=== PATIENT | male | born 1935 | race Caucasian/White ===

== ENCOUNTER 2017-04-29 03:57 | Inpatient (IN) | payer OTHER ==
[~2017-04-29] VITALS: Ht 172.7 cm; Wt 74.8 kg
--- NOTE | 2017-04-29 04:00 | NUR ---
BB RA FROM HOME, PER FAMILY OT IS "MORE ALTERED THAN NORMAL". PT'S FAMILY STATES PT "STARTED MAKING WEIRD NOISES, AND UPON ENTERING THE ROOM HE WAS NOT BREATHING WELL." PT IS AAOX1. RESP EVEN AND UNLABORED. NO S/S OF ACUTE DISTRESS NOTED. PT GOWNED AND PLACED ON MONITOR AND POX. PT SAFETY AND COMFORT MEASURES IN PLACE. AWAITING MD FOR EVAL. PT FAMILY BEDSIDE WITH PT.
[2017-04-29] MEDS ORDERED: IV NS 0.9% 1,000 ML BAG IV ONE (04:30)
[2017-04-29 04:38] LABS: BASOPHILS % (AUTO) 0.1 % (0.0-2.0); EOSINOPHILS # (AUTO) 0.2 /CMM (0.0-0.7); EOSINOPHILS % (AUTO) 2.9 % (0.0-6.0); HEMATOCRIT 38 % (39-51); HEMOGLOBIN 12.9 g/dL (13.5-17.5); LYMPHOCYTES % (AUTO) 40.7 % (20.0-44.0); MEAN CORPUSCULAR HEMOGLOBIN 32 PG (26.0-33.0); MEAN CORPUSCULAR HGB CONC 34 g/dl (31.0-36.0); MEAN CORPUSCULAR VOLUME 94 fL (80-96); MONOCYTES # (AUTO) 0.6 /CMM (0.1-1.30); MONOCYTES % (AUTO) 7.6 % (2.0-12.0); NEUTROPHILS # (AUTO) 3.6 /CMM (1.8-8.9); NEUTROPHILS % (AUTO) 48.7 % (43.0-81.0); PLATELET COUNT (AUTO) 175 /CMM (150-450); RED BLOOD CELL COUNT(AUTO) 4.02 MIL/uL (4.5-6.0); WHITE BLOOD COUNT (AUTO) 7.3 K/uL (4.3-11.0)
[2017-04-29 04:49] LABS: CALCIUM, SERUM 9.1 mg/dL (8.5-10.1); CARBON DIOXIDE 21 mmol/L (21-32); CHLORIDE 102 mmol/L (98-107); CREATININE 1.4 mg/dL (0.6-1.3); GLUCOSE 102 mg/dL (74-106); POTASSIUM 4.1 mmol/L (3.5-5.1); SODIUM SERUM 140 mmol/L (136-145); UREA NITROGEN, BLOOD 16 mg/dL (7-18)
[2017-04-29 04:50] LABS: SERUM AMMONIA 39 umol/L (11-32)
[2017-04-29 04:52] LABS: INR 1.02 (0.87-1.13)
[2017-04-29 04:54] LABS: ALANINE AMINOTRANSFERASE 16 U/L (12-78); ALBUMIN 3.9 g/dL (3.4-5.0); ALCOHOL, BLOOD < 3 mg/dL (0-0); ALKALINE PHOSPHATASE 97 U/L (46-116); ASPARTATE AMINOTRANSFERASE 16 U/L (15-37); BILIRUBIN,DIRECT 0.1 mg/dL (0.0-0.2); BILIRUBIN,TOTAL 0.5 mg/dL (0.2-1.0); TOTAL PROTEIN, SERUM 7.8 g/dL (6.4-8.2)
[2017-04-29 04:56] LABS: ACETAMINOPHEN 0 ug/ml (10-30); SALICYLATE 1.1 mg/dL (2.8-20.0)
[2017-04-29 04:57] LABS: TROPONIN I < 0.017 ng/mL (0.00-0.056)
[2017-04-29 04:57] LABS: APPEARANCE,URINE SL CLOUDY (CLEAR); BILIRUBIN,URINE NEGATIVE (NEGATIVE); BLOOD, URINE 1+ Ery/uL (NEGATIVE); KETONES,URINE NEGATIVE (NEGATIVE); LEUKOCYTE ESTERASE ,URINE NEGATIVE (NEGATIVE); NITRITE, URINE NEGATIVE (NEGATIVE); PH,URINE 5.5 (5.0-8.0); PROTEIN,URINE TRACE mg/dl (NEGATIVE); UGLUCOSE NEGATIVE (NEGATIVE); UROBILINOGEN,URINE 0.2 EU/dL (0.2)
[2017-04-29 05:00] LABS: COLOR,URINE Light yellow (YELLOW)
[2017-04-29 05:02] LABS: THYROID STIMULATING HORMONE 3.875 uIU/mL (0.358-3.74)
[2017-04-29 05:06] LABS: BACTERIA,URINE None seen /HPF (None Seen); SQUAMOUS EPITHELIAL CELL,UR Few /HPF (None Seen); URINE AMORPHOUS URATE Few /HPF (None Seen); WBC,URINE NONE SEEN /HPF (0-3)
--- NOTE | 2017-04-29 06:20 | NUR ---
CALLED FOR TELE BED
--- NOTE | 2017-04-29 06:40 | NUR ---
PANEL PAGED AGAIN
--- NOTE | 2017-04-29 07:04 | NUR ---
RACHELL CALLED BACK; CALL TRANSFERED TO DIDIER BOYCE
--- NOTE | 2017-04-29 07:07 | NUR ---
Patient is resting comfortably in bed with eyes closed. Easily aroused. VSS. No discomfort noted in pt.
[2017-04-29] MEDS ORDERED: ONDANSETRON HCL/PF 4 MG/2 ML VIAL IVP PRN (07:30)
[2017-04-29] MEDS ORDERED: ACETAMINOPHEN 325 MG TABLET PO PRN (07:30)
[2017-04-29] MEDS ORDERED: Z GUARD REMEDY 2 OZ OINT TP PRN (07:30)
[2017-04-29] MEDS ORDERED: LORAZEPAM INJ 2 MG/ML VIAL IV PRN (07:30)
[2017-04-29] MEDS ORDERED: HYDROCODONE/APAP 5/325MG 1 EACH TABLET PO PRN (07:30)
[2017-04-29] MEDS ORDERED: MAGNESIUM HYDROXIDE 30 ML UDC PO PRN (07:30)
[2017-04-29] MEDS ORDERED: MAG HYDROX/AL HYDROX/SIMETH 30 ML UDC PO PRN (07:30)
--- NOTE | 2017-04-29 08:44 | NUR ---
MS RN ADMITTING NOTES PT ADMITTED TO UNIT [facility]IA [facility] AT 0745 ACCOMPANIED BY E.R NURSE EBONIE AND PT'S . A/O X 3, SAME VERBALLY RESPONSIVE WITH NO C/O PAIN OR DISCOMFORTS VOICED. PT WITH DIAGNOSIS OF ALTERED MENTAL STATUS, PER PT IS MORE ALERT AND RESPONSIVE NOW BEFORE HE WAS BROUGHT TO HOSPITAL, HE ANSWERS QUESTIONS COHERENTLY IN FARSI. PT ON ROOM AIR, BREATHING EVEN AND UNLABORED. PT AND ORIENTED TO UNIT AND ROOM. V/S TAKEN AND RECORDED. BODY ASSESSMENT DONE FROM HEAD TO TOE, SKIN IS INTACT WITH NO BRUISES OR WOUNDS. PT HAS IV ACCESS ON LEFT AC G#18, INTACT AND PATENT, FLUSH EASILY. SAFETY MEASURES INITIATED. BED PLACED ON LOW/LOCK POSITION WITH SIDE-RAILS UP X2. BED ALARM ON AND CALL LIGHT PLACED WITHIN EASY REACH. WILL CONTINUE TO MONITOR AND ASSESS PT ACCORDINGLY.
[2017-04-29] MEDS: IV NS 0.9% 1,000 ML IV PRN ×2 (09:08→21:58)
[2017-04-29] MEDS: LEVETIRACETAM (250 MG) 250 MG TABLET PO SCH ×2 (11:31→21:59)
[2017-04-29] MEDS: ASPIRIN 81 MG TAB.CHEW PO SCH (11:31)
[2017-04-29 12:00] VITALS: BP 132/68
[2017-04-29 16:00] VITALS: BP 129/61
--- NOTE | 2017-04-29 18:25 | NUR ---
MS RN CLOSING NOTES PATIENT AWAKE AND RESTING IN BED WITH FAMILY AT BEDSIDE. A/O X4, VERBALLY RESPONSIVE IN FARSI. ON ROOM AIR, RESPIRATIONS EVEN WITH NO SOB NOTED. IV ACCESS ON LEFT AC PATENT AND INTACT, IVF OF NS @75ML/HR INFUSING WELL, NO SIGNS OF INFILTRATION NOTED. HOB ELEVATED. KEPT BED LOCKED AND AT LOWEST POSITION WITH SR UP X2. CALL LIGHT WITHIN REACH. ALL NEEDS AND CARE ATTENDED WELL. WILL ENDORSED TO PSYCHOLOGIST RESEARCH ASSISTANT NURSE FOR [facility]
--- NOTE | 2017-04-29 19:35 | NUR ---
MS RN INITIAL NOTES RECEIVED PT LAYING IN BED WITH HOB ELEVATED AND FAMILY AT BEDSIDE. AWAKE AND RESPONSIVE. RESPIRATIONS ARE EVEN AND UNLABORED, NOT IN ANY ACUTE DISTRESS NOTED. DENIES ANY PAIN AT THIS TIME. IV SITE INTACT, NO INFILTRATION NOTED. DRESSING KEPT CLEAN AND DRY. SAFETY MEASURES ARE IN PLACE. INSTRUCTED PT TO USE CALL LIGHT WHEN ASSISTANCE IS NEEDED, CALL LIGHT LEFT WITHIN REACH. WILL CONTINUE TO MONITOR THROUGHOUT SHIFT.
[2017-04-29 20:00] VITALS: BP 101/53
--- NOTE | 2017-04-30 06:05 | NUR ---
MS RN CLOSING NOTES ALL DUE MEDS GIVEN, NEEDS MET AND RENDERED. ALERT AND RESPONSIVE, REMAINS AFEBRILE. RESPIRATIONS ARE EVEN AND UNLABORED, NOT IN ANY ACUTE DISTRESS NOTED. NO FACIAL GRIMACING OR MOANING NOTED. IV TO LAC INTACT, NO INFILTRATION NOTED. DRESSING KEPT CLEAN AND DTY. IVF RUNNING AT 75ML/HR, TOLERATING WELL. PT ABLE TO AMBULATE TO BATHROOM WITH ASSISTANCE, NEEDS REINFORCEMENT TO USE CALL LIGHT WHEN ASSISTANCE IS NEEDED. SAFETY MEASURES ARE IN PLACE. CALL LIGHT IS LEFT WITHIN REACH. WILL ENDORSE TO NEXT SHIFT FOR CONTINUITY OF CARE.
[2017-04-30 06:48] LABS: BASOPHILS % (AUTO) 0.4 % (0.0-2.0); EOSINOPHILS # (AUTO) 0.1 /CMM (0.0-0.7); EOSINOPHILS % (AUTO) 2.3 % (0.0-6.0); HEMATOCRIT 32 % (39-51); HEMOGLOBIN 11.1 g/dL (13.5-17.5); LYMPHOCYTES # (AUTO) 1.5 /CMM (0.8-4.8); LYMPHOCYTES % (AUTO) 23.6 % (20.0-44.0); MEAN CORPUSCULAR HEMOGLOBIN 32 PG (26.0-33.0); MEAN CORPUSCULAR HGB CONC 35 g/dl (31.0-36.0); MEAN CORPUSCULAR VOLUME 93 fL (80-96); MONOCYTES # (AUTO) 0.6 /CMM (0.1-1.30); MONOCYTES % (AUTO) 8.7 % (2.0-12.0); NEUTROPHILS # (AUTO) 4.1 /CMM (1.8-8.9); PLATELET COUNT (AUTO) 143 /CMM (150-450); RDW COEFFICIENT OF VARIATION 13.2 (11.5-15.0); RED BLOOD CELL COUNT(AUTO) 3.43 MIL/uL (4.5-6.0); WHITE BLOOD COUNT (AUTO) 6.4 K/uL (4.3-11.0)
[2017-04-30 07:25] LABS: CALCIUM, SERUM 8.1 mg/dL (8.5-10.1); CARBON DIOXIDE 26 mmol/L (21-32); CHLORIDE 106 mmol/L (98-107); CREATININE 1.1 mg/dL (0.6-1.3); GLUCOSE 80 mg/dL (74-106); MAGNESIUM 1.8 mg/dL (1.8-2.4); PHOSPHORUS 3.2 mg/dL (2.5-4.9); POTASSIUM 3.9 mmol/L (3.5-5.1); SODIUM SERUM 140 mmol/L (136-145); UREA NITROGEN, BLOOD 20 mg/dL (7-18)
--- NOTE | 2017-04-30 07:31 | NUR ---
MS RN OPENING NOTES RECEIVED PATIENT IN STABLE CONDITION. IN NO APPARENT DISTRESS. BEDSIDE RAILS ARE UPX2. BED IS LOCKED AND LOWERED. CALL LIGHT IS WITHIN REACH. IV LINE IS INTACT AND PATENT. WILL CONTINUE TO MONITOR.
[2017-04-30 08:00] VITALS: BP 137/67
[2017-04-30] MEDS: ASPIRIN 81 MG TAB.CHEW PO SCH (08:41)
[2017-04-30] MEDS: LEVETIRACETAM (250 MG) 250 MG TABLET PO SCH (10:28)
[2017-04-30] MEDS ORDERED: ASPI-1169 PO (10:42)
[2017-04-30] MEDS ORDERED: DONE5TAB34 PO (10:42)
[2017-04-30] MEDS ORDERED: LOSA25TA13 PO (10:42)
[2017-04-30] MEDS ORDERED: GALA8TAB PO (10:42)
[2017-04-30] MEDS ORDERED: LEVE250T2 PO (13:16)
--- NOTE | 2017-04-30 15:55 | NUR ---
PATIENT DISCHARGED IN STABLE CONDITION. IN NO APPARENT DISTRESS. ALL NEEDS WERE MET. ID BAND WAS REMOVED. IV WAS REMOVED. VITAL SIGNS ARE WNL. PATIENT WAS ESCORTED OUT OF THE FACILITY BY JOSHUA PACHECO.
[2017-04-30] MEDS ORDERED: LEVETIRACETAM SOL (5 ML) 100 MG/ML UDC PO SCH (21:00)
== END 2017-04-30 16:05 | disposition home or self-care (01) | DRG 53 ==
LOC: ER 03:58 → TELE 07:29 → MED 10:43
PROVIDERS: ADMIT Internal Medicine; ATTEND Internal Medicine
DX: G40.909 Epilepsy, unspecified, not intractable, without status epilepticus (principal); F03.90 Unspecified dementia, unspecified severity, without behavioral disturbance, psychotic disturbance, mood disturbance, and anxiety; R13.10 Dysphagia, unspecified; I12.9 Hypertensive chronic kidney disease with stage 1 through stage 4 chronic kidney disease, or unspecified chronic kidney disease; N18.9 Chronic kidney disease, unspecified; Z90.5 Acquired absence of kidney; Z86.73 Personal history of transient ischemic attack (TIA), and cerebral infarction without residual deficits; Z85.528 Personal history of other malignant neoplasm of kidney; N40.0 Benign prostatic hyperplasia without lower urinary tract symptoms
CPT/HCPCS: 36415; 70450-TC; 71046; 80048-TC; 80076-TC; 80305; 81000-TC; 82140-TC; 83735-TC; 84100-TC; 84443-TC; 84484-TC; 85025-TC; 85730-TC; 87081-TC; 95819-TC; G0480; J7030

== ENCOUNTER 2017-06-23 18:08 | Inpatient (IN) | payer OTHER ==
[~2017-06-23] VITALS: Ht 167.6 cm; Wt 58.1 kg
[~2017-06-23 18:08] MED LIST: ASPI-1169 PO; DONE5TAB34 PO; LEVE250T2 PO; LOSA25TA13 PO
[2017-06-23] MEDS ORDERED: IV NS 0.9% 500 ML BAG IV ONE (18:30)
[2017-06-23] MEDS ORDERED: IOHEXOL-350 100 ML VIAL IV ONE (18:32)
[2017-06-23 18:41] LABS: BASOPHILS % (AUTO) 0.6 % (0.0-2.0); EOSINOPHILS % (AUTO) 4.2 % (0.0-6.0); HEMATOCRIT 36 % (39-51); HEMOGLOBIN 12.7 g/dL (13.5-17.5); LYMPHOCYTES # (AUTO) 1.5 /CMM (0.8-4.8); LYMPHOCYTES % (AUTO) 24.3 % (20.0-44.0); MEAN CORPUSCULAR HGB CONC 35 g/dl (31.0-36.0); MEAN CORPUSCULAR VOLUME 91 fL (80-96); MONOCYTES # (AUTO) 0.5 /CMM (0.1-1.30); MONOCYTES % (AUTO) 7.4 % (2.0-12.0); NEUTROPHILS # (AUTO) 3.9 /CMM (1.8-8.9); NEUTROPHILS % (AUTO) 63.5 % (43.0-81.0); PLATELET COUNT (AUTO) 160 /CMM (150-450); RDW COEFFICIENT OF VARIATION 12.8 (11.5-15.0); RED BLOOD CELL COUNT(AUTO) 3.97 MIL/uL (4.5-6.0); WHITE BLOOD COUNT (AUTO) 6.2 K/uL (4.3-11.0)
[2017-06-23 18:47] LABS: CALCIUM, SERUM 8.8 mg/dL (8.5-10.1); CARBON DIOXIDE 28 mmol/L (21-32); CHLORIDE 104 mmol/L (98-107); CREATININE 1.6 mg/dL (0.6-1.3); GLUCOSE 95 mg/dL (74-106); POTASSIUM 4.8 mmol/L (3.5-5.1); SODIUM SERUM 139 mmol/L (136-145); UREA NITROGEN, BLOOD 25 mg/dL (7-18)
[2017-06-23] MEDS ORDERED: IV NS 0.9% 500 ML IV ONE (18:49)
[2017-06-23] MEDS ORDERED: CT SWABBABLE VALVE TRANS SET 1 EA INFUS.SET MC ONE (18:50)
[2017-06-23 18:55] LABS: TROPONIN I < 0.017 ng/mL (0.00-0.056)
[2017-06-23 18:59] LABS: ALANINE AMINOTRANSFERASE 16 U/L (12-78); ALBUMIN 3.6 g/dL (3.4-5.0); ALKALINE PHOSPHATASE 86 U/L (46-116); ASPARTATE AMINOTRANSFERASE 14 U/L (15-37); BILIRUBIN,DIRECT 0.1 mg/dL (0.0-0.2); BILIRUBIN,TOTAL 0.4 mg/dL (0.2-1.0); TOTAL PROTEIN, SERUM 7.4 g/dL (6.4-8.2)
[2017-06-23 19:04] LABS: CHOLESTEROL 131 mg/dL (<200); HDL CHOLESTEROL 68 mg/dL (40-60); LDL 63 mg/dL (0-99); TRIGLYCERIDES 80 mg/dL (30-150)
[2017-06-23] MEDS ORDERED: GALA8TAB PO (20:23)
[2017-06-23] MEDS ORDERED: IV NS 0.9% 1,000 ML IV PRN (22:00)
[2017-06-23] MEDS: BLOOD SUGAR DIAGNOSTIC 1 EACH STRIP IN SCH (23:07)
[2017-06-23] MEDS: DONEPEZIL 5 MG TABLET PO SCH (23:11)
[2017-06-24] VITALS: BP 132/78
[2017-06-24] MEDS ORDERED: BLOOD SUGAR DIAGNOSTIC 1 EACH STRIP IN SCH
[2017-06-24 04:00] VITALS: BP 137/75
[2017-06-24 07:03] LABS: BASOPHILS % (AUTO) 0.6 % (0.0-2.0); EOSINOPHILS % (AUTO) 4.6 % (0.0-6.0); HEMATOCRIT 35 % (39-51); HEMOGLOBIN 11.9 g/dL (13.5-17.5); LYMPHOCYTES # (AUTO) 1.4 /CMM (0.8-4.8); LYMPHOCYTES % (AUTO) 24.7 % (20.0-44.0); MEAN CORPUSCULAR HGB CONC 34 g/dl (31.0-36.0); MEAN CORPUSCULAR VOLUME 92 fL (80-96); MONOCYTES # (AUTO) 0.5 /CMM (0.1-1.30); MONOCYTES % (AUTO) 8.9 % (2.0-12.0); NEUTROPHILS # (AUTO) 3.5 /CMM (1.8-8.9); NEUTROPHILS % (AUTO) 61.2 % (43.0-81.0); PLATELET COUNT (AUTO) 149 /CMM (150-450); RDW COEFFICIENT OF VARIATION 13.4 (11.5-15.0); RED BLOOD CELL COUNT(AUTO) 3.77 MIL/uL (4.5-6.0); WHITE BLOOD COUNT (AUTO) 5.7 K/uL (4.3-11.0)
[2017-06-24 07:19] LABS: CALCIUM, SERUM 8.3 mg/dL (8.5-10.1); CARBON DIOXIDE 28 mmol/L (21-32); CHLORIDE 105 mmol/L (98-107); CREATININE 1.3 mg/dL (0.6-1.3); GLUCOSE 71 mg/dL (74-106); POTASSIUM 4.3 mmol/L (3.5-5.1); SODIUM SERUM 140 mmol/L (136-145); UREA NITROGEN, BLOOD 21 mg/dL (7-18)
[2017-06-24 07:20] LABS: CHOLESTEROL 118 mg/dL (<200); HDL CHOLESTEROL 54 mg/dL (40-60); LDL 59 mg/dL (0-99); TRIGLYCERIDES 89 mg/dL (30-150)
[2017-06-24] MEDS: BLOOD SUGAR DIAGNOSTIC 1 EACH STRIP IN SCH ×4 (08:28→22:24)
[2017-06-24] MEDS: ASPIRIN EC 325 MG TABLET.DR PO SCH (08:39)
[2017-06-24] MEDS: LEVETIRACETAM (250 MG) 250 MG TABLET PO SCH ×2 (08:39→22:26)
[2017-06-24] MEDS ORDERED: GALANTAMINE HYDROBROMIDE 8 MG TABLET PO SCH (09:00)
[2017-06-24] MEDS: GALANTAMINE HYDROBROMIDE 4 MG TABLET PO SCH ×3 (11:32→18:05)
[2017-06-24 12:37] VITALS: BP 144/89
[2017-06-24] MEDS ORDERED: ATOR40TA PO (13:34)
[2017-06-24 15:17] LABS: APPEARANCE,URINE CLEAR (CLEAR); BILIRUBIN,URINE NEGATIVE (NEGATIVE); BLOOD, URINE 1+ Ery/uL (NEGATIVE); COLOR,URINE YELLOW (YELLOW); KETONES,URINE NEGATIVE (NEGATIVE); LEUKOCYTE ESTERASE ,URINE NEGATIVE (NEGATIVE); NITRITE, URINE NEGATIVE (NEGATIVE); PH,URINE 5.5 (5.0-8.0); PROTEIN,URINE NEGATIVE (NEGATIVE); UGLUCOSE NEGATIVE (NEGATIVE); UROBILINOGEN,URINE 0.2 EU/dL (0.2)
[2017-06-24 15:19] LABS: BACTERIA,URINE None seen /HPF (None Seen); SQUAMOUS EPITHELIAL CELL,UR 0-2 /HPF (None Seen); WBC,URINE 0-2 /HPF (0-3)
[2017-06-24 16:00] VITALS: BP 112/50
[2017-06-24 20:00] VITALS: BP 133/66
[2017-06-24] MEDS: ATORVASTATIN 40 MG TABLET PO SCH (22:25)
[2017-06-24] MEDS: DONEPEZIL 5 MG TABLET PO SCH (22:25)
[2017-06-25] VITALS (7 sets, daily range): BP systolic 122–157; BP diastolic 70–93
[2017-06-25] MEDS: BLOOD SUGAR DIAGNOSTIC 1 EACH STRIP IN SCH ×4 (07:32→21:45)
[2017-06-25] MEDS: GALANTAMINE HYDROBROMIDE 4 MG TABLET PO SCH ×3 (08:30→17:45)
[2017-06-25] MEDS: LEVETIRACETAM (250 MG) 250 MG TABLET PO SCH ×2 (08:30→21:45)
[2017-06-25] MEDS: ASPIRIN EC 325 MG TABLET.DR PO SCH (08:30)
[2017-06-25] MEDS: CYANOCOBALAMIN 1,000 MCG/ML VIAL IM SCH (10:18)
[2017-06-25] MEDS: DONEPEZIL 5 MG TABLET PO SCH (21:45)
[2017-06-25] MEDS: ATORVASTATIN 40 MG TABLET PO SCH (21:45)
[2017-06-26 06:17] LABS: BASOPHILS % (AUTO) 0.4 % (0.0-2.0); EOSINOPHILS % (AUTO) 5.2 % (0.0-6.0); HEMATOCRIT 39 % (39-51); HEMOGLOBIN 13.4 g/dL (13.5-17.5); LYMPHOCYTES # (AUTO) 1.3 /CMM (0.8-4.8); LYMPHOCYTES % (AUTO) 20.7 % (20.0-44.0); MEAN CORPUSCULAR HGB CONC 34 g/dl (31.0-36.0); MEAN CORPUSCULAR VOLUME 92 fL (80-96); MONOCYTES # (AUTO) 0.5 /CMM (0.1-1.30); MONOCYTES % (AUTO) 8.2 % (2.0-12.0); NEUTROPHILS # (AUTO) 4.2 /CMM (1.8-8.9); NEUTROPHILS % (AUTO) 65.5 % (43.0-81.0); PLATELET COUNT (AUTO) 148 /CMM (150-450); RED BLOOD CELL COUNT(AUTO) 4.24 MIL/uL (4.5-6.0); WHITE BLOOD COUNT (AUTO) 6.5 K/uL (4.3-11.0)
[2017-06-26 06:34] LABS: CARBON DIOXIDE 28 mmol/L (21-32); CHLORIDE 104 mmol/L (98-107); CREATININE 1.2 mg/dL (0.6-1.3); GLUCOSE 86 mg/dL (74-106); POTASSIUM 4.2 mmol/L (3.5-5.1); SODIUM SERUM 139 mmol/L (136-145); UREA NITROGEN, BLOOD 20 mg/dL (7-18)
[2017-06-26] MEDS: BLOOD SUGAR DIAGNOSTIC 1 EACH STRIP IN SCH ×4 (07:40→22:00)
[2017-06-26 08:00] VITALS: BP 121/75
[2017-06-26] MEDS: ASPIRIN EC 325 MG TABLET.DR PO SCH (08:27)
[2017-06-26] MEDS: LEVETIRACETAM (250 MG) 250 MG TABLET PO SCH ×2 (08:27→21:05)
[2017-06-26] MEDS: GALANTAMINE HYDROBROMIDE 4 MG TABLET PO SCH ×3 (08:27→16:53)
[2017-06-26] MEDS: CYANOCOBALAMIN 1,000 MCG/ML VIAL IM SCH (08:27)
[2017-06-26 16:00] VITALS: BP 127/72
[2017-06-26 20:00] VITALS: BP 135/69
[2017-06-26] MEDS: DONEPEZIL 5 MG TABLET PO SCH (21:05)
[2017-06-26] MEDS: ATORVASTATIN 40 MG TABLET PO SCH (21:05)
[2017-06-27 04:00] VITALS: BP 140/86
[2017-06-27] MEDS: BLOOD SUGAR DIAGNOSTIC 1 EACH STRIP IN SCH ×3 (08:06→17:06)
[2017-06-27] MEDS: LEVETIRACETAM (250 MG) 250 MG TABLET PO SCH (09:20)
[2017-06-27] MEDS: ASPIRIN EC 325 MG TABLET.DR PO SCH (09:20)
[2017-06-27] MEDS: GALANTAMINE HYDROBROMIDE 4 MG TABLET PO SCH ×3 (09:20→17:06)
[2017-06-27] MEDS: CYANOCOBALAMIN 1,000 MCG/ML VIAL IM SCH (09:20)
[2017-06-27 16:00] VITALS: BP 115/68
[2017-06-27 20:00] VITALS: BP 112/60
[2017-10-10] MEDS ORDERED: ATOR40TA PO (09:33)
[2017-10-13] MEDS ORDERED: LEVO500T75 PO (17:00)
== END 2017-06-27 20:50 | DRG 45 ==
LOC: ER 18:13 → TELE1 20:34 → MEDSG1 06-25 11:40
PROVIDERS: ADMIT Nurse Practitioner Acute Care; ATTEND Nurse Practitioner Acute Care
DX: I63.9 Cerebral infarction, unspecified (principal); N17.0 Acute kidney failure with tubular necrosis; I12.9 Hypertensive chronic kidney disease with stage 1 through stage 4 chronic kidney disease, or unspecified chronic kidney disease; N18.9 Chronic kidney disease, unspecified; F03.90 Unspecified dementia, unspecified severity, without behavioral disturbance, psychotic disturbance, mood disturbance, and anxiety; Z79.899 Other long term (current) drug therapy; Z79.82 Long term (current) use of aspirin; D64.9 Anemia, unspecified
CPT/HCPCS: 36415; 70450-TC; 70551-TC; 71045-TC; 80048-TC; 80061-TC; 80076-TC; 80305; 81000-TC; 82962-TC; 84484-TC; 85025-TC; 85730-TC; 86850-TC; 87081-TC; 92611-TC; 93307-TC; 93880-TC; 97110-TC; 97112-TC; 97116-TC; 97530-TC; A4606; J3420; J7030; J7040; Q9967; Z7610

== ENCOUNTER 2018-03-19 16:22 | Emergency (ER) | payer OTHER ==
[~2018-03-19] VITALS: Ht 165.1 cm; Wt 65.8 kg
[~2018-03-19 16:22] MED LIST changes: +ATOR40TA PO; +GALA8TAB PO; -LEVE250T2 PO; +LEVO500T75 PO; -LOSA25TA13 PO; +LOSA25TA27 PO
[2018-03-19 17:08] VITALS: BP 124/76
--- NOTE | 2018-03-19 17:26 | NUR ---
PT BBS, C/O CONSTPATION, SEEN BY , T&R
--- NOTE | 2018-03-19 17:27 | NUR ---
Patient discharged to home in stable condition. Written and verbal after care instructions given. Patient verbalizes understanding of instruction.
== END 2018-03-19 17:28 | disposition home or self-care (01) ==
LOC: ER 16:24
DX: K59.00 Constipation, unspecified (principal); F03.90 Unspecified dementia, unspecified severity, without behavioral disturbance, psychotic disturbance, mood disturbance, and anxiety; I10 Essential (primary) hypertension; F32.9 Major depressive disorder, single episode, unspecified; Z90.5 Acquired absence of kidney; Z86.73 Personal history of transient ischemic attack (TIA), and cerebral infarction without residual deficits; Z79.82 Long term (current) use of aspirin; Z79.899 Other long term (current) drug therapy
CPT/HCPCS: 99282; A4606; Z7610; Z7502

== ENCOUNTER 2018-05-18 09:48 | Emergency (ER) | payer OTHER ==
[~2018-05-18] VITALS: Ht 170.2 cm; Wt 56.7 kg
[2018-05-18 09:48] VITALS: BP 132/78
--- NOTE | 2018-05-18 12:47 | NUR ---
Patient discharged to home in stable condition. Written and verbal after care instructions given. Patient verbalizes understanding of instruction.
== END 2018-05-18 12:49 | disposition home or self-care (01) ==
LOC: ER 09:52
DX: S70.01XA Contusion of right hip, initial encounter (principal); M54.5 Low back pain; I10 Essential (primary) hypertension; F32.9 Major depressive disorder, single episode, unspecified; F03.90 Unspecified dementia, unspecified severity, without behavioral disturbance, psychotic disturbance, mood disturbance, and anxiety; Z86.73 Personal history of transient ischemic attack (TIA), and cerebral infarction without residual deficits; Z98.890 Other specified postprocedural states; Z79.82 Long term (current) use of aspirin; Z79.899 Other long term (current) drug therapy; W18.39XA Other fall on same level, initial encounter; Y93.01 Activity, walking, marching and hiking; Y92.89 Other specified places as the place of occurrence of the external cause; Y99.8 Other external cause status
CPT/HCPCS: 72170-TC; 73552

== ENCOUNTER 2018-07-05 04:01 | Emergency (ER) | payer OTHER ==
[~2018-07-05] VITALS: Ht 170.2 cm; Wt 56.7 kg
--- NOTE | 2018-07-05 04:15 | NUR ---
BIB AMBULANCE W/ REPORT OF SEIZURE EPISODE AT HOME . BASE LINE DEMENTIA PER . PLACED ON A MONITOR AND SEIZURE PRECUTION. WILL CONT TO MONITOR ,
[2018-07-05 04:54] LABS: BASOPHILS % (AUTO) 0.7 % (0.0-2.0); EOSINOPHILS % (AUTO) 3.9 % (0.0-6.0); HEMATOCRIT 35 % (39-51); HEMOGLOBIN 11.9 g/dL (13.5-17.5); LYMPHOCYTES # (AUTO) 1.4 /CMM (0.8-4.8); LYMPHOCYTES % (AUTO) 27.2 % (20.0-44.0); MEAN CORPUSCULAR HGB CONC 34 g/dl (31.0-36.0); MEAN CORPUSCULAR VOLUME 95 fL (80-96); MONOCYTES # (AUTO) 0.3 /CMM (0.1-1.30); MONOCYTES % (AUTO) 5.9 % (2.0-12.0); NEUTROPHILS # (AUTO) 3.3 /CMM (1.8-8.9); NEUTROPHILS % (AUTO) 62.3 % (43.0-81.0); PLATELET COUNT (AUTO) 133 /CMM (150-450); RED BLOOD CELL COUNT(AUTO) 3.71 MIL/uL (4.5-6.0); WHITE BLOOD COUNT (AUTO) 5.2 K/uL (4.3-11.0)
[2018-07-05 05:07] LABS: CALCIUM, SERUM 8.3 mg/dL (8.5-10.1); CARBON DIOXIDE 23 mmol/L (21-32); CHLORIDE 108 mmol/L (98-107); CREATININE 1.5 mg/dL (0.6-1.3); GLUCOSE 93 mg/dL (74-106); POTASSIUM 4.3 mmol/L (3.5-5.1); SODIUM SERUM 143 mmol/L (136-145); UREA NITROGEN, BLOOD 16 mg/dL (7-18)
[2018-07-05] MEDS ORDERED: LEVETIRACETAM (500MG) 500 MG in IV NS 0.9% 100 ML IV SCH (05:30)
[2018-07-05] MEDS ORDERED: LEVETIRACETAM (500MG) 500 MG/5 ML VIAL IV ONE (05:30)
--- NOTE | 2018-07-05 05:30 | NUR ---
ADDENDUM: Intravenous End Time Documentation: Keppra 500 MG IVPB: start time: 0530 am ; end time:0600 am : IV site: LAC # 20 Port # 1
--- NOTE | 2018-07-05 05:39 | NUR ---
Patient is resting comfortably in bed with eyes closed. Easily aroused. VSS. no seizure activity noted. medicated as ordered . at the bed side, will cont to monitor
--- NOTE | 2018-07-05 06:16 | NUR ---
Patient discharged to home in stable condition. Written and verbal after care instructions given. verbalizes understanding of instruction.
[2018-07-05 06:43] VITALS: BP 138/84
== END 2018-07-05 06:43 | disposition home or self-care (01) ==
LOC: ER 04:03
DX: G40.909 Epilepsy, unspecified, not intractable, without status epilepticus (principal); D64.9 Anemia, unspecified; F03.90 Unspecified dementia, unspecified severity, without behavioral disturbance, psychotic disturbance, mood disturbance, and anxiety; I10 Essential (primary) hypertension; R53.1 Weakness; F32.9 Major depressive disorder, single episode, unspecified; R94.31 Abnormal electrocardiogram [ECG] [EKG]; Z90.5 Acquired absence of kidney; Z79.82 Long term (current) use of aspirin; Z86.73 Personal history of transient ischemic attack (TIA), and cerebral infarction without residual deficits
CPT/HCPCS: 36415; 80048; 85025; 93005; 96365; 99284; J1953; J7030 ×2

== ENCOUNTER 2018-12-02 10:04 | Emergency (ER) | payer OTHER ==
[~2018-12-02] VITALS: Ht 167.6 cm; Wt 59.0 kg
[2018-12-02 10:40] VITALS: BP 134/76
[2018-12-02 11:47] LABS: BASOPHILS % (AUTO) 0.4 % (0.0-2.0); EOSINOPHILS % (AUTO) 3.2 % (0.0-6.0); HEMATOCRIT 36 % (39-51); HEMOGLOBIN 12.1 g/dL (13.5-17.5); LYMPHOCYTES # (AUTO) 1.4 /CMM (0.8-4.8); LYMPHOCYTES % (AUTO) 23.3 % (20.0-44.0); MEAN CORPUSCULAR HGB CONC 34 g/dl (31.0-36.0); MEAN CORPUSCULAR VOLUME 95 fL (80-96); MONOCYTES # (AUTO) 0.5 /CMM (0.1-1.30); MONOCYTES % (AUTO) 8.1 % (2.0-12.0); NEUTROPHILS # (AUTO) 3.8 /CMM (1.8-8.9); PLATELET COUNT (AUTO) 135 /CMM (150-450); RED BLOOD CELL COUNT(AUTO) 3.74 MIL/uL (4.5-6.0); WHITE BLOOD COUNT (AUTO) 5.9 K/uL (4.3-11.0)
[2018-12-02 12:09] LABS: ALANINE AMINOTRANSFERASE 20 U/L (12-78); ALBUMIN 3.3 g/dL (3.4-5.0); ALKALINE PHOSPHATASE 120 U/L (46-116); ASPARTATE AMINOTRANSFERASE 16 U/L (15-37); BILIRUBIN,DIRECT 0.1 mg/dL (0.0-0.2); BILIRUBIN,TOTAL 0.3 mg/dL (0.2-1.0); CALCIUM, SERUM 8.5 mg/dL (8.5-10.1); CARBON DIOXIDE 30 mmol/L (21-32); CHLORIDE 107 mmol/L (98-107); CREATININE 1.4 mg/dL (0.6-1.3); GLUCOSE 67 mg/dL (74-106); POTASSIUM 5.1 mmol/L (3.5-5.1); SODIUM SERUM 139 mmol/L (136-145); UREA NITROGEN, BLOOD 21 mg/dL (7-18)
[2018-12-02] MEDS ORDERED: HYDROCODONE/APAP 5/325MG 1 EACH TABLET PO ONE (12:30)
[2018-12-02] MEDS ORDERED: HYDROCODONE/APAP 5/325MG 1 EACH TABLET ONE (12:35)
[2018-12-02 13:06] LABS: APPEARANCE,URINE Clear (CLEAR); BILIRUBIN,URINE Negative (NEGATIVE); BLOOD, URINE Trace-lysed Ery/uL (NEGATIVE); COLOR,URINE Yellow (YELLOW); KETONES,URINE Negative (NEGATIVE); LEUKOCYTE ESTERASE ,URINE Negative (NEGATIVE); NITRITE, URINE Negative (NEGATIVE); PH,URINE 5.5 (5.0-8.0); PROTEIN,URINE Negative (NEGATIVE); UGLUCOSE Negative (NEGATIVE); UROBILINOGEN,URINE 0.2 EU/dL (0.2)
[2018-12-02 13:19] LABS: BACTERIA,URINE None seen /HPF (None Seen); RBC,URINE 0-2 /HPF (0-2); SQUAMOUS EPITHELIAL CELL,UR Rare /HPF (None Seen); WBC,URINE 0-2 /HPF (0-3)
--- NOTE | 2018-12-02 13:52 | NUR ---
pt has uti back pain
--- NOTE | 2018-12-02 13:52 | NUR ---
pt stable pending d/c home vss
--- NOTE | 2018-12-02 13:57 | NUR ---
SPOKE WITH DAV,,SHE'S COMING TO PICK HIM UP
== END 2018-12-02 14:46 | disposition home or self-care (01) ==
LOC: ER 10:04
DX: N39.0 Urinary tract infection, site not specified (principal); G89.29 Other chronic pain; M54.9 Dorsalgia, unspecified; F03.90 Unspecified dementia, unspecified severity, without behavioral disturbance, psychotic disturbance, mood disturbance, and anxiety; R56.9 Unspecified convulsions; I10 Essential (primary) hypertension; R53.1 Weakness; F32.9 Major depressive disorder, single episode, unspecified; Z90.5 Acquired absence of kidney; Z86.73 Personal history of transient ischemic attack (TIA), and cerebral infarction without residual deficits; Z79.82 Long term (current) use of aspirin
CPT/HCPCS: 36415; 80048-TC; 80076-TC; 81000-TC; 85025-TC

== ENCOUNTER 2019-01-31 11:28 | Inpatient (IN) | payer OTHER ==
[~2019-01-31] VITALS: Ht 170.2 cm; Wt 59.9 kg
--- NOTE | 2019-01-31 11:38 | NUR ---
Bib , felt dizzy and fell last night hitting head. per , -ko c/o generalized body aches. Patient a/ox4, breathing even and unlabored, no sob noted, needs attended. Kept comfortable.
--- NOTE | 2019-01-31 11:45 | NUR ---
DR. CLARKE AT BEDSIDE FOR EVAL.
[2019-01-31] MEDS ORDERED: LIDOCAINE HCL/MPF 1% 30 ML VIAL IJ ONE (11:53)
--- NOTE | 2019-01-31 12:04 | NUR ---
LACERATION CLEANSED WITH NS.
[2019-01-31] MEDS ORDERED: TDAP [DIPH/PERTUSSIS/TET] 0.5 ML VIAL IM ONE (12:05)
[2019-01-31] MEDS: TDAP [DIPH/PERTUSSIS/TET] 0.5 ML VIAL IM ONE ×2 (12:09→12:13)
[2019-01-31 12:13] LABS: BASOPHILS # (AUTO) 0.1 /CMM (0.0-0.2); BASOPHILS % (AUTO) 0.8 % (0.0-2.0); EOSINOPHILS % (AUTO) 2.1 % (0.0-6.0); HEMATOCRIT 37 % (39-51); HEMOGLOBIN 12.4 g/dL (13.5-17.5); LYMPHOCYTES # (AUTO) 1.5 /CMM (0.8-4.8); LYMPHOCYTES % (AUTO) 22.2 % (20.0-44.0); MEAN CORPUSCULAR HGB CONC 33 g/dl (31.0-36.0); MEAN CORPUSCULAR VOLUME 96 fL (80-96); MONOCYTES # (AUTO) 0.7 /CMM (0.1-1.30); NEUTROPHILS # (AUTO) 4.3 /CMM (1.8-8.9); NEUTROPHILS % (AUTO) 64.9 % (43.0-81.0); PLATELET COUNT (AUTO) 174 /CMM (150-450); RED BLOOD CELL COUNT(AUTO) 3.88 MIL/uL (4.5-6.0); WHITE BLOOD COUNT (AUTO) 6.6 K/uL (4.3-11.0)
--- NOTE | 2019-01-31 12:14 | NUR ---
PATIENT'S STATED PATIENT RECEIVED THE TETANUS VACCINE [address] CLARKE MADE aWARE.
[2019-01-31] MEDS ORDERED: LET SOLN TOPICAL 8 ML UDC TP ONE (12:17)
[2019-01-31 12:20] LABS: CALCIUM, SERUM 8.9 mg/dL (8.5-10.1); CARBON DIOXIDE 28 mmol/L (21-32); CHLORIDE 107 mmol/L (98-107); CREATININE 1.4 mg/dL (0.6-1.3); GLUCOSE 83 mg/dL (74-106); POTASSIUM 4.3 mmol/L (3.5-5.1); SODIUM SERUM 141 mmol/L (136-145); UREA NITROGEN, BLOOD 20 mg/dL (7-18)
[2019-01-31 12:26] LABS: ALANINE AMINOTRANSFERASE 20 U/L (12-78); ALBUMIN 3.2 g/dL (3.4-5.0); ALKALINE PHOSPHATASE 115 U/L (46-116); ASPARTATE AMINOTRANSFERASE 17 U/L (15-37); BILIRUBIN,DIRECT 0.1 mg/dL (0.0-0.2); BILIRUBIN,TOTAL 0.5 mg/dL (0.2-1.0)
[2019-01-31] MEDS ORDERED: BACI/NEOM/POLY B OINT PKT 1 UDPKT PACKET TP ONE (12:30)
[2019-01-31] MEDS ORDERED: LIDOCAINE HCL/PF 1% 30 ML VIAL TP ONE (12:30)
--- NOTE | 2019-01-31 12:50 | NUR ---
Pt's is Andrew , # for contact [phone]
--- NOTE | 2019-01-31 13:44 | NUR ---
ACCESS CONTROL SPECIALIST/MED RECON UNABLE TO UPDATE HOME MEDICATION INFORMATION AT THIS TIME. CALLED AND SPOKE WITH PATIENT -DAV ([phone]). WILL BE HERE LATER AND WILL PROVIDE INFORMATION.
[2019-01-31] MEDS ORDERED: FERR325T23 PO (14:19)
[2019-01-31] MEDS ORDERED: LEVE250T2 PO (14:19)
[2019-01-31] MEDS ORDERED: LOSA25TA27 PO (14:19)
[2019-01-31] MEDS ORDERED: CHOL200026 PO (14:19)
[2019-01-31] MEDS ORDERED: DONE5TAB34 PO (14:19)
[2019-01-31] MEDS ORDERED: ATOR40TA PO (14:19)
[2019-01-31] MEDS ORDERED: ASPI-1169 PO (14:19)
--- NOTE | 2019-01-31 15:44 | NUR ---
REPORT GIVEN TO PALOMA RING.
--- NOTE | 2019-01-31 16:11 | NUR ---
PATIENT TRANSFERRED TO TELE ROOM VIA ACLS PROTOCOL. PATIENT RESTING, IN STABLE CONDITION.
[2019-01-31 16:35] VITALS: BP 127/68
[2019-01-31] MEDS ORDERED: Z GUARD REMEDY 2 OZ OINT TP PRN (17:00)
[2019-01-31] MEDS ORDERED: ONDANSETRON HCL/PF 4 MG/2 ML VIAL IVP PRN (17:00)
[2019-01-31] MEDS ORDERED: MAGNESIUM HYDROXIDE 30 ML UDC PO PRN (17:00)
[2019-01-31] MEDS ORDERED: MORPHINE SULFATE INJ 2 MG/ML DISP.SYRIN IV PRN (17:00)
[2019-01-31] MEDS ORDERED: MAG HYDROX/AL HYDROX/SIMETH 30 ML UDC PO PRN (17:00)
[2019-01-31] MEDS ORDERED: ACETAMINOPHEN 325 MG TABLET PO PRN (17:00)
[2019-01-31] MEDS ORDERED: HYDROCODONE/APAP 5/325MG 1 EACH TABLET PO PRN (17:00)
--- NOTE | 2019-01-31 17:00 | NUR ---
telephone operators supervisor note received patient from er with dx syncope, alert oriented x1,farsi speaking, at bedside dr chinchilla neurologist bedside ,examined patient, placed on tele sr hr 76 , hospital ordination done ,vs taken belonging checked by chemical detection expert , bed in lowest and locked position , lt ac hli intact, flushed well , bed alrm placed , iv v started as ordered, admitted under care Gage rn director inpatient headache program
[2019-01-31] MEDS: IV NS 0.9% 1,000 ML IV PRN (17:25)
[2019-01-31] MEDS: LEVETIRACETAM (250 MG) 250 MG TABLET PO SCH (17:25)
--- NOTE | 2019-01-31 19:25 | NUR ---
TELE/RN NOTES Patient in bed, resting comfortably at this time, A/O x1-2, farsi speaking, No S/S of acute distress noted, breathing even and unlabored, No SOB noted, Denies any pain at this time, on tele monitoring with sinus rhythm. IV sites with no s/s of infection, infiltration, with fluids as ordered. Safety maintained, bed at the lowest locked position, bed alarm on. Clean and dry. Will continue to monitor as per plan of care.
[2019-01-31 20:00] VITALS: BP 100/59
[2019-01-31] MEDS: HEPARIN SODIUM, PORCINE 5000 UNITS/1 ML VIAL SQ SCH (20:50)
[2019-02-01] VITALS: BP 120/71
[2019-02-01 04:00] VITALS: BP 130/75
[2019-02-01] MEDS: IV NS 0.9% 1,000 ML IV PRN (05:41)
--- NOTE | 2019-02-01 06:19 | NUR ---
patient refused AM labs, risks and benefits explained, patient still refused, Kept saying i want to sleep.
--- NOTE | 2019-02-01 06:53 | NUR ---
TELE/RN NOTES Patient remained in bed, resting comfortably at this time, A/O x1-2, farsi speaking, in no acute distress , breathing even and unlabored, No SOB noted, Denies any pain at this time, on tele monitoring with sinus rhythm. IV sites with no s/s of infection, infiltration, with fluids as ordered. Due meds given as ordered, tolerated well, Safety maintained, bed at the lowest locked position, bed alarm on. Clean and dry. Endorse to AM shift nurse for [facility].
--- NOTE | 2019-02-01 07:30 | NUR ---
CONSULTING SALES EXECUTIVE AM NOTES PT IN BED, AAO X 2, FARSI SPEAKING, LITTLE CROATIAN, ON ROOM AIR, NO SOB, RESPIRATION UNLABORED, SINUS RHYTHM ON MONITOR, DENIES PAIN AT THIS TIME, LAC G 20 WITH NS A T75 ML/HR INFUSING WELL, SITE CLEAR. CARDIAC DIET. SEE NURSING FLOWSHEET FOR SKIN ISSUES. WITH BRP. SAFETY MEASURES IN PLACE, BED LOW/LOCKED. CALL LIGHT WITHIN REACH. SITTER AT SIDE. WILL CONT TO MONITOR.
[2019-02-01 08:00] VITALS: BP 141/81
[2019-02-01 08:15] VITALS: BP_SYST 142; BP_SYST 144; BP_SYST 151; BP_DIAS 81; BP_DIAS 82
[2019-02-01] MEDS ORDERED: FERROUS SULFATE (325 MG) 325 MG/TAB TABLET PO SCH (09:00)
[2019-02-01] MEDS: ASPIRIN 81 MG TAB.CHEW PO SCH (09:02)
[2019-02-01] MEDS: ATORVASTATIN 40 MG TABLET PO SCH (09:02)
[2019-02-01] MEDS: PANTOPRAZOLE 40 MG TABLET.DR PO SCH (09:02)
[2019-02-01] MEDS: LEVETIRACETAM (250 MG) 250 MG TABLET PO SCH ×2 (09:03→16:53)
[2019-02-01] MEDS: DONEPEZIL 5 MG TABLET PO SCH (09:03)
[2019-02-01] MEDS: CHOLECALCIFEROL 1,000 UNIT TABLET (VIT D3) PO SCH (09:03)
[2019-02-01] MEDS: HEPARIN SODIUM, PORCINE 5000 UNITS/1 ML VIAL SQ SCH ×2 (09:04→21:40)
[2019-02-01] MEDS: LOSARTAN POTASSIUM 25 MG TABLET PO SCH (09:04)
--- NOTE | 2019-02-01 09:26 | NUR ---
WOUND CARE CONSULT: PT DEMONSTRATES ABILITY TO ASSIST WITH TURNING AND REPOSITIONING IN BED AND IS CONTINENT AT THIS TIME. SUTURED LACERATION NOTED TO LEFT EAR, PRESENT ON ADMISSION. RECOMMENDATIONS MADE FOR SKIN PROTECTION. DISCUSSED WITH NURSING STAFF. WILL SEE PRN. CURRENT GRACIA SCORE IS 16. Addendum: 02/01/19 at 0927 by ELAINE GUZMAN WNDNU Amended: Links added.
--- NOTE | 2019-02-01 09:30 | NUR ---
MS RN NOTE DC TELE PER DR. BENOIT DUE MEDS GIVEN
--- NOTE | 2019-02-01 10:30 | NUR ---
RN NOTES PATIENT REFUSING IV FLUID AT THIS TIME.
[2019-02-01 12:18] LABS: BASOPHILS % (AUTO) 0.2 % (0.0-2.0); EOSINOPHILS % (AUTO) 2.5 % (0.0-6.0); HEMATOCRIT 37 % (39-51); HEMOGLOBIN 12.4 g/dL (13.5-17.5); LYMPHOCYTES # (AUTO) 1.3 /CMM (0.8-4.8); MEAN CORPUSCULAR HGB CONC 34 g/dl (31.0-36.0); MEAN CORPUSCULAR VOLUME 95 fL (80-96); MONOCYTES # (AUTO) 0.6 /CMM (0.1-1.30); MONOCYTES % (AUTO) 9.9 % (2.0-12.0); NEUTROPHILS # (AUTO) 3.8 /CMM (1.8-8.9); NEUTROPHILS % (AUTO) 65.4 % (43.0-81.0); PLATELET COUNT (AUTO) 175 /CMM (150-450); RED BLOOD CELL COUNT(AUTO) 3.89 MIL/uL (4.5-6.0); WHITE BLOOD COUNT (AUTO) 5.8 K/uL (4.3-11.0)
[2019-02-01 12:19] LABS: BILIRUBIN,TOTAL 0.3 mg/dL (0.2-1.0); CALCIUM, SERUM 8.4 mg/dL (8.5-10.1); CREATININE 1.2 mg/dL (0.6-1.3); POTASSIUM 4.4 mmol/L (3.5-5.1); TOTAL PROTEIN, SERUM 6.7 g/dL (6.4-8.2)
[2019-02-01 12:32] LABS: THYROID STIMULATING HORMONE 2.634 uIU/mL (0.358-3.74)
[2019-02-01 16:00] VITALS: BP 141/71
--- NOTE | 2019-02-01 18:08 | NUR ---
RN PM NOTES PT IN BED, AAO X 2, FARSI SPEAKING, LITTLE MAORI, ON ROOM AIR, NO SOB, RESPIRATION UNLABORED, DENIES PAIN AT THIS TIME, LAC G 20 FLUSHES WELL. SITE CLEAR. PATIENT REFUSED TO BE HOOKED BACK TO IVF. CARDIAC DIET. WITH BRP. SAFETY MEASURES IN PLACE, BED LOW/LOCKED. CALL LIGHT WITHIN REACH. SITTER AT SIDE. ALL NEEDS MET AT THIS TIME. PM CARE DONE. NO OTHER SIGNIFICANT CHANGE IN CONDITION. WILL ENDORSE TO NEXT SHIFT FOR [facility].
--- NOTE | 2019-02-01 19:25 | NUR ---
TELE/RN NOTES Patient in bed, awake, watching TV, A/O x1-2, farsi speaking, No S/S of acute distress noted, breathing even and unlabored, No SOB noted, Denies any pain at this time, on tele monitoring with sinus rhythm. IV sites with no s/s of infection, infiltration, with fluids as ordered. Safety maintained, bed at the lowest locked position, bed alarm on. Clean and dry. Will continue to monitor as per plan of care.
[2019-02-01 20:00] VITALS: BP 134/78
[2019-02-01] MEDS: AMOX/CLAVULANATE 875 MG TABLET PO SCH (21:37)
[2019-02-02] VITALS: BP 142/70
[2019-02-02 04:00] VITALS: BP 145/78
--- NOTE | 2019-02-02 06:53 | NUR ---
TELE/RN NOTES Patient in bed, resting comfortably at this time, A/O to his base line, farsi speaking, in no acute distress , breathing even and unlabored, No SOB noted, Denies any pain at this time, on tele monitoring with sinus rhythm. IV sites with no s/s of infection, infiltration, with fluids as ordered. Due meds given as ordered, tolerated well, Safety maintained, bed at the lowest locked position, bed alarm on. Clean and dry. Will endorse to AM shift nurse for [facility].
[2019-02-02 06:59] LABS: BASOPHILS % (AUTO) 0.4 % (0.0-2.0); EOSINOPHILS % (AUTO) 3.8 % (0.0-6.0); HEMATOCRIT 35 % (39-51); HEMOGLOBIN 11.9 g/dL (13.5-17.5); LYMPHOCYTES # (AUTO) 1.6 /CMM (0.8-4.8); LYMPHOCYTES % (AUTO) 25.5 % (20.0-44.0); MEAN CORPUSCULAR HGB CONC 34 g/dl (31.0-36.0); MEAN CORPUSCULAR VOLUME 94 fL (80-96); MONOCYTES # (AUTO) 0.6 /CMM (0.1-1.30); NEUTROPHILS # (AUTO) 3.9 /CMM (1.8-8.9); NEUTROPHILS % (AUTO) 61.3 % (43.0-81.0); PLATELET COUNT (AUTO) 170 /CMM (150-450); RED BLOOD CELL COUNT(AUTO) 3.73 MIL/uL (4.5-6.0); WHITE BLOOD COUNT (AUTO) 6.3 K/uL (4.3-11.0)
--- NOTE | 2019-02-02 07:00 | NUR ---
AUDIENCE DEVELOPMENT MANAGER NOTES PATIENT IS AWAKE A/O X4 PATIENT IS AWARE WHERE IS AT , KNOWS HIS NAME AND WHY HE IS AT THE HOSPITAL PATIENT STATED HE SIP AND FELL. PATIENT STATE THAT HE IS WORRIED ABOUT HIS . AND WANTED TO GO HOME. PATIENT IS ON CARDIAC TELE MONITOR WITH SR IN THE 60'S PATIENT IS AMBULATORY AND IS WALKING AROUND WITH A WALKER AND ASSISTANCE. PATIENT HAS RFA 20 G @ 75 ML/ HR . BED LOCKED AND LOWEST POSITION CALL LIGHT WITH IN REACH ALL SAFETY PRECAUTION IMPLEMENTED PER HOSPITAL PROTOCOL
[2019-02-02 07:14] LABS: ALBUMIN 2.9 g/dL (3.4-5.0); BILIRUBIN,TOTAL 0.4 mg/dL (0.2-1.0); CALCIUM, SERUM 8.4 mg/dL (8.5-10.1); CREATININE 1.2 mg/dL (0.6-1.3); PHOSPHORUS 3.2 mg/dL (2.5-4.9); POTASSIUM 4.2 mmol/L (3.5-5.1); TOTAL PROTEIN, SERUM 6.4 g/dL (6.4-8.2)
[2019-02-02 08:00] VITALS: BP 139/78
[2019-02-02] MEDS: AMOX/CLAVULANATE 875 MG TABLET PO SCH (09:25)
[2019-02-02] MEDS: ASPIRIN 81 MG TAB.CHEW PO SCH (09:25)
[2019-02-02] MEDS: LEVETIRACETAM (250 MG) 250 MG TABLET PO SCH (09:25)
[2019-02-02] MEDS: ATORVASTATIN 40 MG TABLET PO SCH (09:25)
[2019-02-02] MEDS: DONEPEZIL 5 MG TABLET PO SCH (09:25)
[2019-02-02] MEDS: LOSARTAN POTASSIUM 25 MG TABLET PO SCH (09:26)
[2019-02-02] MEDS: CHOLECALCIFEROL 1,000 UNIT TABLET (VIT D3) PO SCH (09:27)
[2019-02-02] MEDS: HEPARIN SODIUM, PORCINE 5000 UNITS/1 ML VIAL SQ SCH (09:27)
[2019-02-02] MEDS: PANTOPRAZOLE 40 MG TABLET.DR PO SCH (09:29)
--- NOTE | 2019-02-02 10:00 | NUR ---
EMERGENCY MANAGEMENT COORDINATOR NOTES TALKED TO ATTENDING - PATIENT POSSIBLE DISCHARGE.
[2019-02-02] MEDS ORDERED: AMOX-430 PO (10:41)
[2019-02-02 12:00] VITALS: BP 139/78
--- NOTE | 2019-02-02 13:53 | NUR ---
ENGINE SETTER NOTES PATIENT DISCHARGE. PATIENT NO SOB, NO SYNCOPY, NO SIGNS OF ACUTE DISTRESS .FAMILY AT BEDSIDE. WITH TRANSPORTATION. PICTURES TAKEN , DISCHARGE PAPERRS SIGNS VALUABLES PAPERS SIGNED . IV TAKEN OFF ALL SAFETY PRECAUTIONS IMPLEMENTED PER HOSPITAL PROTOCOL
== END 2019-02-02 13:35 | disposition home or self-care (01) | DRG 48 ==
LOC: ER 11:29 → TELE1 15:38 → MEDSG1 02-02 08:52
PROVIDERS: ADMIT Nurse Practitioner Acute Care; ATTEND Nurse Practitioner Acute Care
PROC: 0HQ3XZZ Repair Left Ear Skin, External Approach (ICD-10-PCS; principal; 2019-01-31)
DX: G90.8 Other disorders of autonomic nervous system (principal); N17.0 Acute kidney failure with tubular necrosis; E44.1 Mild protein-calorie malnutrition; D68.59 Other primary thrombophilia; I69.354 Hemiplegia and hemiparesis following cerebral infarction affecting left non-dominant side; I72.3 Aneurysm of iliac artery; S01.312A Laceration without foreign body of left ear, initial encounter; W19.XXXA Unspecified fall, initial encounter; Y92.009 Unspecified place in unspecified non-institutional (private) residence as the place of occurrence of the external cause; F03.90 Unspecified dementia, unspecified severity, without behavioral disturbance, psychotic disturbance, mood disturbance, and anxiety; F32.9 Major depressive disorder, single episode, unspecified; D63.8 Anemia in other chronic diseases classified elsewhere; E78.5 Hyperlipidemia, unspecified; Z90.5 Acquired absence of kidney; Z79.899 Other long term (current) drug therapy; Z79.82 Long term (current) use of aspirin; G40.909 Epilepsy, unspecified, not intractable, without status epilepticus; Z74.09 Other reduced mobility; M48.02 Spinal stenosis, cervical region; M43.12 Spondylolisthesis, cervical region; M25.78 Osteophyte, vertebrae; I71.4 Abdominal aortic aneurysm, without rupture; I70.0 Atherosclerosis of aorta; J32.9 Chronic sinusitis, unspecified
CPT/HCPCS: 36415; 70450-TC; 71045-TC; 72125-TC; 80048-TC; 80053-TC; 80061-TC; 80076-TC; 82962-TC; 83540-TC; 83735-TC; 84100-TC; 84443-TC; 84484-TC; 85025-TC; 85730-TC; 87081-TC; 90715; 93307-TC; 93970-TC; 97116-TC; 97530-TC; A6403; G0378; J1644; J3490; J7030

== ENCOUNTER 2019-04-09 20:00 | Emergency (ER) | payer OTHER ==
[~2019-04-09] VITALS: Ht 170.2 cm; Wt 57.2 kg
[2019-04-09 20:00] VITALS: BP 131/69
[~2019-04-09 20:00] MED LIST changes: +AMOX-430 PO; +CHOL200026 PO; +FERR325T23 PO; -GALA8TAB PO; +LEVE250T2 PO; -LEVO500T75 PO
[2019-04-09] MEDS ORDERED: FLUORESCEIN SODIUM OPHTH 1 EA STRIP ONE (20:26)
[2019-04-09] MEDS ORDERED: TETRAcaine 5 ML BOTTLE EACHEYE ONE (20:30)
[2019-04-09] MEDS ORDERED: FLUORESCEIN SODIUM OPHTH 1 EA STRIP OP ONE (20:30)
--- NOTE | 2019-04-09 20:56 | NUR ---
Patient discharged to home in stable condition. Written and verbal after care instructions given. Patient verbalizes understanding of instruction.
== END 2019-04-09 20:57 | disposition home or self-care (01) ==
LOC: ER 20:03
DX: H10.9 Unspecified conjunctivitis (principal); I10 Essential (primary) hypertension; F32.9 Major depressive disorder, single episode, unspecified; F03.90 Unspecified dementia, unspecified severity, without behavioral disturbance, psychotic disturbance, mood disturbance, and anxiety; Z86.73 Personal history of transient ischemic attack (TIA), and cerebral infarction without residual deficits; Z90.5 Acquired absence of kidney; Z79.899 Other long term (current) drug therapy; Z79.82 Long term (current) use of aspirin

== ENCOUNTER 2019-05-04 11:58 | Inpatient (IN) | payer OTHER ==
[~2019-05-04] VITALS: Ht 170.2 cm; Wt 57.6 kg
--- NOTE | 2019-05-04 12:02 | NUR ---
BEN 87 FROM HOME C/O MORE ALTERED THAN USUAL STARTED YESTERDAY, PT TO BED 7, PLACED ON MONITOR, -SOB, -CP, NAD NOTED, VSS, PENDING ER PROVIDER RUFINA
[2019-05-04 12:49] LABS: BASOPHILS % (AUTO) 0.5 % (0.0-2.0); EOSINOPHILS % (AUTO) 0.1 % (0.0-6.0); HEMATOCRIT 37 % (39-51); HEMOGLOBIN 12.6 g/dL (13.5-17.5); LYMPHOCYTES # (AUTO) 1.1 /CMM (0.8-4.8); LYMPHOCYTES % (AUTO) 12.1 % (20.0-44.0); MEAN CORPUSCULAR HGB CONC 34 g/dl (31.0-36.0); MEAN CORPUSCULAR VOLUME 95 fL (80-96); MONOCYTES # (AUTO) 0.4 /CMM (0.1-1.30); MONOCYTES % (AUTO) 4.7 % (2.0-12.0); NEUTROPHILS # (AUTO) 7.5 /CMM (1.8-8.9); NEUTROPHILS % (AUTO) 82.6 % (43.0-81.0); PLATELET COUNT (AUTO) 159 /CMM (150-450); RED BLOOD CELL COUNT(AUTO) 3.91 MIL/uL (4.5-6.0); WHITE BLOOD COUNT (AUTO) 9.1 K/uL (4.3-11.0)
[2019-05-04 12:52] LABS: CALCIUM, SERUM 8.2 mg/dL (8.5-10.1); CARBON DIOXIDE 25 mmol/L (21-32); CHLORIDE 105 mmol/L (98-107); CREATININE 1.6 mg/dL (0.6-1.3); GLUCOSE 105 mg/dL (74-106); POTASSIUM 4.2 mmol/L (3.5-5.1); SERUM AMMONIA 1 umol/L (11-32); SODIUM SERUM 140 mmol/L (136-145); UREA NITROGEN, BLOOD 17 mg/dL (7-18)
--- NOTE | 2019-05-04 12:58 | NUR ---
RONY [phone]
[2019-05-04 12:59] LABS: ALANINE AMINOTRANSFERASE 15 U/L (12-78); ALBUMIN 3.6 g/dL (3.4-5.0); ALKALINE PHOSPHATASE 114 U/L (46-116); ASPARTATE AMINOTRANSFERASE 19 U/L (15-37); BILIRUBIN,DIRECT 0.1 mg/dL (0.0-0.2); BILIRUBIN,TOTAL 0.4 mg/dL (0.2-1.0); TOTAL PROTEIN, SERUM 7.3 g/dL (6.4-8.2)
[2019-05-04 14:00] LABS: APPEARANCE,URINE CLEAR (CLEAR); COLOR,URINE YELLOW (YELLOW)
[2019-05-04 14:01] LABS: BILIRUBIN,URINE NEGATIVE (NEGATIVE); KETONES,URINE NEGATIVE (NEGATIVE); LEUKOCYTE ESTERASE ,URINE NEGATIVE (NEGATIVE); NITRITE, URINE NEGATIVE (NEGATIVE); PROTEIN,URINE 100 mg/dl (NEGATIVE); UGLUCOSE NEGATIVE (NEGATIVE)
[2019-05-04 14:02] LABS: BLOOD, URINE MODERATE Ery/uL (NEGATIVE); UROBILINOGEN,URINE 0.2 EU/dL (0.2)
[2019-05-04 14:03] LABS: BACTERIA,URINE Rare /HPF (None Seen); SQUAMOUS EPITHELIAL CELL,UR Few /HPF (None Seen); WBC,URINE NONE SEEN /HPF (0-3)
--- NOTE | 2019-05-04 14:45 | NUR ---
GAVE MOVESHEET TO ADMITTING TO GET INSURANCE AUTH TO ADMIT
--- NOTE | 2019-05-04 14:58 | NUR ---
per mai guerrero la care; pt may stay for obs
--- NOTE | 2019-05-04 15:02 | NUR ---
CALLED [facility], PAGED JERROD KENYON DNP
--- NOTE | 2019-05-04 15:15 | NUR ---
CALLED NURSING SUP FOR TELE BED
[2019-05-04] MEDS ORDERED: FUROSEMIDE 40 MG/4 ML VIAL IV ONE (16:00)
[2019-05-04] MEDS ORDERED: ASPIRIN 300 MG/SUPP.RECT RC ONE ×2 (16:00→16:05)
[2019-05-04] MEDS ORDERED: FUROSEMIDE 40 MG/4 ML VIAL ONE (16:03)
--- NOTE | 2019-05-04 16:18 | NUR ---
report given tonio jang for sally pt will be tranported to 3rd floor
[2019-05-04] MEDS ORDERED: HYDROCODONE/APAP 5/325MG 1 EACH TABLET PO PRN (16:30)
[2019-05-04] MEDS ORDERED: TEMAZEPAM 15 MG CAPSULE PO PRN (16:30)
[2019-05-04] MEDS ORDERED: Z GUARD REMEDY 2 OZ OINT TP PRN (16:30)
[2019-05-04] MEDS ORDERED: HYDROCODONE/APAP 10/325MG 1 EA TABLET PO PRN (16:30)
[2019-05-04] MEDS ORDERED: ONDANSETRON HCL/PF 4 MG/2 ML VIAL IVP PRN (16:30)
[2019-05-04] MEDS ORDERED: ACETAMINOPHEN 325 MG TABLET PO PRN (16:30)
--- NOTE | 2019-05-04 17:01 | NUR ---
PT TRANSPORTED TO 3RD FLOOR
--- NOTE | 2019-05-04 17:05 | NUR ---
TELE/RN NOTES RECEIVED REPORT FROM ER. WILL CONTINUE TO MONITOR.
[2019-05-04] MEDS: LEVETIRACETAM (250 MG) 250 MG TABLET PO SCH (17:41)
--- NOTE | 2019-05-04 17:46 | NUR ---
TELE/RN NOTES PATIENT CAN TOLERATE PUDDING AND CRUSHED ORAL MEDICATION, WITHOUT DIFFICULTY SWALLOWING. WILL MONITOR CONTINUOUSLY.
--- NOTE | 2019-05-04 18:46 | NUR ---
TELE/RN CLOSING NOTES ADMITTED A MALE 83Y/O PATIENT FROM ER. ALERT AND ORIENTED X1. NO RESPIRATORY DISTRESS NOTED. DENIES PAIN AT THIS TIME. ON TELE MONITOR OF SR 75B/M. ,SKIN ASSESSMENT WAS DONE AND SKIN ARE INTACT. FARSI SPEAKING ONLY. PATIENT IS INCONTINENT AND DIAPER IS ON. WITH ADMITTING DIAGNOSES OF NSTEMI AND DEMENTIA. SIDE RAIL UP X2/ BED IN LOWEST POSITION AND LOCKED. SAFETY PRECAUTION IN PLACE. CALL LIGHT WITHIN REACH. WILL ENDORSED TO HEATING AND VENTILATING DRAFTER FOR [facility].
--- NOTE | 2019-05-04 19:35 | NUR ---
RECEIVED PT IN BED A/O X 1, ON CARDIAC MONITORING SR 75'S HR. STABLE AND NOT IN DISTRESS. SAFETY MEASURES AT ALL TIMES. WILL CONT TO MONITOR.
[2019-05-04 20:00] VITALS: BP 130/80
[2019-05-05] VITALS: BP 144/78
[2019-05-05 04:00] VITALS: BP 151/85
--- NOTE | 2019-05-05 06:14 | NUR ---
NO SIGNIFICANT CHANGES, PT SLEPT WELL. ON CARDIAC MONITORING WITH SINUS RHYTHM 81'S HR IN TELE MONITOR. NO C/O CHEST PAIN. RE ORIENT PT AT ALL TIMES. ALL NEEDS ATTENDED AND ANTICIPATED, KEPT CLEAN, DRY AND COMFORTABLE. AM CARE RENDERED, ASSISTED PT REPOSITION Q2HR. SAFETY MEASURES AT ALL TIMES. ENDORSE TO NEXT SHIFT POC.
--- NOTE | 2019-05-05 07:40 | NUR ---
TELE/RN NOTE THE PATIENT IS RECEIVED IN BED. PATIENT IS ALERT AND ORIENTED X1. IN ROOM AIR AND DENIES SOB. RESPIRATION REGULAR AND UNLABORED. DENIES PAIN. THE PATIENT IS IN NO APPARENT DISTRESS. LAC G 18 PATENT AND SALINE LOCKED. BED LOW AND LOCKED. SIDE RAILS UP X3. CALL LIGHT WITHIN REACH. WILL CONTINUE TO MONITOR. Addendum: 05/05/19 at 0810 by EVE BAILEY RN RN NOTE EXTERNAL TELE BOX READING IS SINUS BRADYCARDIA 58.
[2019-05-05 08:00] VITALS: BP 129/74
[2019-05-05 08:38] LABS: BASOPHILS # (AUTO) 0.1 /CMM (0.0-0.2); BASOPHILS % (AUTO) 0.7 % (0.0-2.0); EOSINOPHILS % (AUTO) 0.8 % (0.0-6.0); HEMATOCRIT 42 % (39-51); LYMPHOCYTES # (AUTO) 1.5 /CMM (0.8-4.8); MEAN CORPUSCULAR HGB CONC 34 g/dl (31.0-36.0); MEAN CORPUSCULAR VOLUME 96 fL (80-96); MONOCYTES # (AUTO) 0.7 /CMM (0.1-1.30); MONOCYTES % (AUTO) 9.6 % (2.0-12.0); NEUTROPHILS # (AUTO) 5.3 /CMM (1.8-8.9); NEUTROPHILS % (AUTO) 68.9 % (43.0-81.0); PLATELET COUNT (AUTO) 149 /CMM (150-450); RED BLOOD CELL COUNT(AUTO) 4.37 MIL/uL (4.5-6.0); WHITE BLOOD COUNT (AUTO) 7.7 K/uL (4.3-11.0)
[2019-05-05 08:52] LABS: CARBON DIOXIDE 28 mmol/L (21-32); CHLORIDE 103 mmol/L (98-107); CREATININE 1.6 mg/dL (0.6-1.3); GLUCOSE 106 mg/dL (74-106); PHOSPHORUS 3.5 mg/dL (2.5-4.9); POTASSIUM 3.8 mmol/L (3.5-5.1); SODIUM SERUM 141 mmol/L (136-145); UREA NITROGEN, BLOOD 20 mg/dL (7-18)
[2019-05-05 08:54] LABS: CHOLESTEROL 110 mg/dL (<200); HDL CHOLESTEROL 56 mg/dL (40-60); LDL 48 mg/dL (0-99); TRIGLYCERIDES 49 mg/dL (30-150)
[2019-05-05] MEDS ORDERED: FERROUS SULFATE (325 MG) 325 MG/TAB TABLET PO SCH (09:00)
[2019-05-05] MEDS ORDERED: ATORVASTATIN 40 MG TABLET PO SCH (09:00)
[2019-05-05] MEDS ORDERED: DONEPEZIL 5 MG TABLET PO SCH (09:00)
[2019-05-05] MEDS ORDERED: CHOLECALCIFEROL 1,000 UNIT TABLET (VIT D3) PO SCH (09:00)
[2019-05-05] MEDS ORDERED: ASPIRIN 81 MG TAB.CHEW PO SCH (09:00)
[2019-05-05] MEDS: LEVETIRACETAM (250 MG) 250 MG TABLET PO SCH (09:08)
--- NOTE | 2019-05-05 13:36 | NUR ---
ECHO WAS CANCELED, IT WAS DONE 02-01-2019, NOTIFIED CHARGE NURSE
--- NOTE | 2019-05-05 15:37 | NUR ---
RN NOTE THE PATIENT ALERT AND ORIENTED X1. DENIES PAIN. IN ROOM AIR AND SATURATION IS AT 97%. DENIES SOB. RESPIRATION REGULAR ND UNLABORED. THE PATIENT IN NO APPARENT DISTRESS. DISCHARGE EDUCATION PROVIDED TO THE PATIENT AND . THE VERBALIZED UNDERSTANDING AND THE PATIENT NEEDS FREQUENT REMINDERS. IV LINE REMOVED AND NO BLEEDING NOTED. THE PATIENT LEFT THE HOSPITAL WITH IN A PRIVATE CAR. THE PATIENT LEFT THE HOSPITAL IN STABLE CONDITION.
== END 2019-05-05 15:37 | disposition home or self-care (01) | DRG 190 ==
LOC: ER 12:00 → MED 16:13 → TELE 19:20 → MED 05-05 08:39
PROVIDERS: ADMIT Nurse Practitioner Acute Care; ATTEND Nurse Practitioner Acute Care
DX: I21.4 Non-ST elevation (NSTEMI) myocardial infarction (principal); N17.0 Acute kidney failure with tubular necrosis; G93.41 Metabolic encephalopathy; E44.0 Moderate protein-calorie malnutrition; F03.90 Unspecified dementia, unspecified severity, without behavioral disturbance, psychotic disturbance, mood disturbance, and anxiety; G40.909 Epilepsy, unspecified, not intractable, without status epilepticus; E78.5 Hyperlipidemia, unspecified; I69.354 Hemiplegia and hemiparesis following cerebral infarction affecting left non-dominant side; F32.9 Major depressive disorder, single episode, unspecified; D63.8 Anemia in other chronic diseases classified elsewhere; Z68.1 Body mass index [BMI] 19.9 or less, adult; I10 Essential (primary) hypertension; Z90.5 Acquired absence of kidney
CPT/HCPCS: 36415; 70450-TC; 71045-TC; 80048-TC; 80061-TC; 80076-TC; 81000-TC; 82140-TC; 83735-TC; 84100-TC; 84484-TC; 85025-TC; 87081-TC; 87086-TC; 97116-TC; 97530-TC; G0378; J1940